=== PATIENT | female | born 2000 | race Caucasian/White ===

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

== ENCOUNTER 2021-11-18 18:56 | Emergency (ER) | payer OTHER, SELFPAY ==
[2021-11-18 19:05] VITALS: BP 121/74; PULSE 81; RESP 20; TEMP 36.8; O2SAT 99
--- NOTE | 2021-11-18 19:21 | ED.FEMALEGU ---
HPI - Female Genitourinary General Chief complaint: Urogenital-Female Stated complaint: Urinary Problem Time Seen by Provider: 11/18/21 19:10 Source: patient and RN notes reviewed Mode of arrival: ambulatory Limitations: no limitations History of Present Illness HPI Narrative: Patient presents today complaining of urinary frequency, urgency, and one episode of urinary incontinence. Symptoms began yesterday. Denies dysuria, hematuria, abdominal pain or flank pain. Has not tried any [id number]-[id number] treatment prior to arrival. Denies any concerns for sexually transmitted infections. Denies any external itching, pain, rashes. Related Data Home Medications Medication Instructions Recorded Confirmed testosterone cypionate 200 mg IM WEEKLY 11/18/21 11/18/21 Allergies Allergy/AdvReac Type Severity Reaction Status Date / Time No Known Allergies Allergy Verified 11/18/21 19:17 Review of Systems Review of Systems: CONSTITUTIONAL: Denies body aches, fever, chills, or sweats. EYES: Denies visual changes, redness, or discharge. ENT: Denies rhinorrhea, congestion, sore throat, or otalgia. CARDIOVASCULAR: Denies chest pain, palpitations, or edema. RESPIRATORY: Denies cough or dyspnea. GASTROINTESTINAL: Denies abdominal pain, nausea, vomiting, or diarrhea. GENITOURINARY: Denies dysuria or hematuria.+ Urinary urgency, frequency, incontinence SKIN: Denies rash, itching, or wounds. MUSCULOSKELETAL: Denies back pain, joint pain, or myalgia. NEUROLOGIC: Denies headache, numbness, tingling, or weakness. PSYCH: Denies depression or anxiety. PMFSH Comments At time of signature, I have reviewed and agree with nursing past medical, surgical, social and family history unless otherwise noted. Please see nursing chart for further information. There is no relevant family history pertinent to the presenting complaint Exam Narrative: GENERAL: Well-appearing, well-nourished, and in no acute distress. HEAD: Normocephalic, atraumatic. EYES: EOMI. No redness or drainage. Conjunctivae normal. ENT: Mucous membranes pink and moist. NECK: Normal AROM. CHEST: No respiratory distress. Clear to auscultation. HEART: Regular rate and rhythm. No murmur appreciated. Normal peripheral pulses. ABDOMEN: Soft, nontender, nondistended, normal active bowel sounds.-CVAT EXTREMITIES: Normal range of motion. No edema. SKIN: Warm, dry, no rash. Capillary refill normal. Normal skin turgor. NEURO: No focal deficits. Alert and oriented x3. Gait steady. PSYCH: Normal affect. No signs of depression or anxiety. Course Course Level of Care: Express Care Visit Vital Signs Vital signs: Vital Signs Temperature 98.3 F 11/18/21 19:05 Pulse Rate 81 11/18/21 19:05 Respiratory Rate 20 11/18/21 19:05 Blood Pressure 121/74 11/18/21 19:05 Pulse Oximetry 99 11/18/21 19:05 Temperature 98.3 F 11/18/21 19:05 Pulse Rate 81 11/18/21 19:05 Respiratory Rate 20 11/18/21 19:05 Blood Pressure 121/74 11/18/21 19:05 Pulse Oximetry 99 11/18/21 19:05 Reviewed. Pt has been instructed to follow up with his PCP regarding his elevated blood pressure today. MDM - Female Genitourinary Differential Diagnosis Differential diagnosis: Likely urinary tract infection, vaginitis and other (Pyelonephritis, interstitial cystitis) Lab Data Attestation: I reviewed the patient's lab results. Labs: Urine Glucose Negative Reference Range: Negative Urine Bilirubin Negative Reference Range: Negative Urine Ketone Negative Reference Range: Negative Urine Specific [place] 1.015 Reference Range:1.001-1.035 Urine Blood Negative
== END 2021-11-18 19:28 | disposition home or self-care (01) ==
PROVIDERS: Emergency Provider Nurse Practitioner; PCP Family Medicine
DX: N30.00 Acute cystitis without hematuria (principal)
CPT/HCPCS: 81003; 87086; 99213; G0463

== ENCOUNTER 2022-02-03 10:42 | Emergency (ER) | payer OTHER, SELFPAY ==
--- NOTE | 2022-02-03 11:06 | ED.GENADULT ---
HPI - General Adult General Chief complaint: Unspecified Stated complaint: overheated Time Seen by Provider: 02/03/22 10:45 History of Present Illness HPI narrative: 21-year-old female presented to the emergency room for complaints of heat exhaustion. 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 Patient states that she became concerned when she stopped sweating. Presently patient is alert and oriented x4. Related Data Home Medications Medication Instructions Recorded Confirmed testosterone cypionate 200 mg/mL 200 mg IM WEEKLY 11/18/21 02/03/22 intramuscular oil Allergies Allergy/AdvReac Type Severity Reaction Status Date / Time No Known Allergies Allergy Verified 02/03/22 11:18 Review of Systems Review of Systems: CONSTITUTIONAL: Denies fever, chills, or sweats. EYES: Denies visual changes, redness, or discharge. ENT: Denies rhinorrhea, congestion, sore throat, or otalgia. CARDIOVASCULAR: Denies chest pain, palpitations, or edema. RESPIRATORY: Denies cough or dyspnea. GASTROINTESTINAL: Denies abdominal pain, nausea, vomiting, or diarrhea. GENITOURINARY: Denies dysuria or hematuria. SKIN: Denies rash or itching. MUSCULOSKELETAL: Reports body aches NEUROLOGIC: Reports headache, numbness, dizziness, or weakness. PSYCHIATRIC: Denies anxiety or depression. Exam Narrative: GENERAL: Well-appearing, well-nourished, and in no acute distress. HEAD: Normocephalic, atraumatic. EYES: PERRLA and EOMI. ENT: Nares clear, no rhinorrhea or epistaxis. Mucous membranes dry. NECK: Supple. No adenopathy or masses. No carotid bruits or JVD CHEST: Clear to auscultation. No respiratory distress. No wheezes rales or rhonchi HEART: Regular rate and rhythm. No murmur heard. Normal peripheral pulses. ABDOMEN: Soft, nontender, nondistended, normal active bowel sounds. EXTREMITIES: Normal range of motion. No edema. SKIN: Warm, dry, no rash. NEURO: No focal deficits. Alert and oriented x3. PSYCH: Normal mood and affect. Course Vital Signs Vital signs: Vital Signs Temperature 36.6 C 02/03/22 11:12 Pulse Rate 65 02/03/22 11:12 Respiratory Rate 16 02/03/22 11:12 Blood Pressure 116/87 02/03/22 11:12 Pulse Oximetry 100 02/03/22 11:12 Oxygen Delivery Room Air 02/03/22 11:12 Temperature 36.6 C 02/03/22 11:12 Pulse Rate 65 02/03/22 11:12 Respiratory Rate 16 02/03/22 11:12 Blood Pressure 116/87 02/03/22 11:12 Pulse Oximetry 100 02/03/22 11:12 Oxygen Delivery Room Air 02/03/22 11:12 Medical Decision Making Vital Signs Vital Signs: Vital Signs Temperature 36.6 C 02/03/22 11:12 Pulse Rate 65 02/03/22 11:12 Respiratory Rate 16 02/03/22 11:12 Blood Pressure 116/87 02/03/22 11:12 Pulse Oximetry 100 02/03/22 11:12 Oxygen Delivery Room Air 02/03/22 11:12 Temperature 36.6 C 02/03/22 11:12 Pulse Rate 65 02/03/22 11:12 Respiratory Rate 16 02/03/22 11:12 Blood Pressure 116/87 02/03/22 11:12 Pulse Oximetry 02/03/22 11:12 Oxygen Delivery Room Air 02/03/22 11:12 Lab Data Result diagrams: 02/03/22 11:19 02/03/22 11:19 Labs: Lab Results 02/03/22 02/03/22 Range/Units 11:19 11:19 WBC 8.9 (4.5-10.0) K/mm3 RBC 4.30 (4.2-5.4) M/mm3 Hgb 13.3 (12.0-15.0) g/dL Hct 39.5 (37.0-47.0) % MCV 91.9 (80-100) fl MCH 30.9 (26-34) pg MCHC 33.7 (32-36) g/dl RDW 11.9 (11.5-14.5) % Plt Count 316 (150-375) k/mm3 MPV 9.9 (7.4-10.4) fl Immature Gran % (Auto) 0.1 (0-0.5) % Neut % (Auto) 66.8 (45.5-73.1) % Lymph % (Auto) 23.6 (18.3-44.2) % [place] % (Auto) 6.6 (2.6-8.5) % Eos % (Auto) 2.4 (0-4.4) % Baso % (Auto) 0.5 (0.2-1.2) % Lymph # (Auto) 2.09 (0.9-3.2) K/mm3 [place] # (Auto) 0.6 (0.1-0.6) K/mm3 Eos # (Auto) 0.2 (0-0.3) K/mm3 Baso # (Auto) 0.0 (0.0-0.1)
[2022-02-03 11:12] VITALS: BP 116/87; PULSE 65; RESP 16; TEMP 36.6; O2SAT 100
[2022-02-03] MEDS: SODIUM CHLORIDE 0.9% IV 1,000 ML 999 ML IV CONT (11:20)
[2022-02-03 11:26] LABS: Basophils Percent Auto 0.5 % (0.2-1.2); Eosinophils Absolute Auto 0.2 K/mm3 (0-0.3); Eosinophils Percent Auto 2.4 % (0-4.4); Hematocrit 39.5 % (37.0-47.0); Hemoglobin 13.3 g/dL (12.0-15.0); Immature Granulocyte Absolute 0.01 K/mm3 (0.00-0.031); Immature Granulocyte Percent A 0.1 % (0-0.5); Lymphocytes Absolute Auto 2.09 K/mm3 (0.9-3.2); Lymphocytes Percent Auto 23.6 % (18.3-44.2); Mean Corpuscular HGB Conc 33.7 g/dl (32-36); Mean Corpuscular Hemoglobin 30.9 pg (26-34); Mean Corpuscular Volume 91.9 fl (80-100); Mean Platelet Volume 9.9 fl (7.4-10.4); Monocytes Absolute Auto 0.6 K/mm3 (0.1-0.6); Monocytes Percent Auto 6.6 % (2.6-8.5); Neutrophils Absolute Auto 5.9 K/mm3 (1.3-6.7); Neutrophils Percent Auto 66.8 % (45.5-73.1); Platelet Count Result 316 k/mm3 (150-375); Red Cell Distribution Width 11.9 % (11.5-14.5); White Blood Count 8.9 K/mm3 (4.5-10.0)
[2022-02-03] MEDS: ONDANSETRON INJ 4 MG/2 ML VIAL IV PUSH (11:31)
[2022-02-03] MEDS: KETOROLAC 30 MG/ML VIAL (*BKC) IV PUSH (11:32)
[2022-02-03 11:40] LABS: Alanine Aminotransferase 14 U/L (6-35); Albumin Level 4.7 g/dL (3.5-5.1); Alkaline Phosphatase 54 U/L (38-126); Anion Gap 8 mmol/L (8-16); Aspartate Amino Transferase 19 U/L (14-36); Bilirubin,Total 0.5 mg/dL (0.2-1.3); Blood Urea Nitrogen 14 mg/dL (7-17); Calcium 8.9 mg/dL (8.4-10.2); Carbon Dioxide 23 mmol/L (22-30); Chloride 109 mmol/L (98-107); Estimated CRCL calculation 107 ml/min; Estimated Glomerular Filt Rate > 60; Glucose 88 mg/dL (65-110); Potassium 4.3 mmol/L (3.4-5.0); Sodium 140 mmol/L (137-145)
[2022-02-03 12:34] VITALS: BP 116/64; PULSE 67; RESP 18; O2SAT 98
== END 2022-02-03 12:40 | disposition home or self-care (01) ==
PROVIDERS: Emergency Provider Nurse Practitioner Family; PCP Family Medicine
DX: T67.9XXA Effect of heat and light, unspecified, initial encounter (principal); X30.XXXA Exposure to excessive natural heat, initial encounter
CPT/HCPCS: 36415; 80053; 85025; 96361; 96374; 96375; 99284; J1885; J2405; J7030

== ENCOUNTER 2022-06-02 15:40 | Emergency (ER) | payer OTHER, SELFPAY ==
[2022-06-02 15:44] VITALS: BP 96/56; PULSE 123; RESP 20; TEMP 37.8; O2SAT 100
--- NOTE | 2022-06-02 15:48 | ED.URI ---
HPI - URI/Sore Throat General Chief Complaint: Upper Respiratory Infection Stated Complaint: Sore Throat/Headache Time Seen by Provider: 06/02/22 15:48 Source: patient and RN notes reviewed History of Present Illness HPI Narrative: Patient is a 21-year-old female who presents the urgent care with complaints of sore throat, headache, body aches, fatigue, postnasal drainage. Patient states that symptoms started 2 days ago and she has had 2 negative COVID test at home. Patient states that she is taken cough drops, mucous relief and cold medications [id number]. Denies any ill exposures. No other acute complaints. No acute distress noted. Patient read the plan of care. Some parts of this dictation were generated by voice recognition software and may contain typographical and/or grammatical inaccuracies. Related Data Home Medications Medication Instructions Recorded Confirmed sertraline 50 mg tablet 50 mg PO DAILY 06/02/22 06/02/22 Allergies Allergy/AdvReac Type Severity Reaction Status Date / Time No Known Allergies Allergy Verified 06/02/22 15:45 Review of Systems Review of Systems: CONSTITUTIONAL: Reports a fever and fatigue EYES: Denies visual changes, redness, or discharge. ENT: Reports of postnasal drainage, sore throat, rhinorrhea CARDIOVASCULAR: Denies chest pain, palpitations, or edema. RESPIRATORY: Denies cough or dyspnea. GASTROINTESTINAL: Denies abdominal pain, nausea, vomiting, or diarrhea. GENITOURINARY: Denies dysuria or hematuria. SKIN: Denies rash or itching. MUSCULOSKELETAL: Denies back pain, joint pain. Reports of body aches NEUROLOGIC: Reports of headache All other systems reviewed are negative, except as documented in HPI. [facility] Past Medical History Medical History (Updated 06/02/22 @ 16:08 by KOREY Kirkpatrick) Anxiety Seasonal allergies Surgical History Surgical History (Updated 02/17/22 @ 10:24 by Scotty Rosa) No pertinent past surgical history Family History Family History (System 02/17/22 @ 10:24 by Scotty Rosa) Father Heart disease Mother Asthma Anxiety and depression Sibling Asthma Anxiety and depression Grandparent Breast cancer maternal and paternal side both dx in 30s Social History Social History (System 02/17/22 @ 10:24 by Scotty Rosa) Smoking status: Current every day smoker Tobacco type: e-cigarettes/vaping Alcohol intake: current Substance use: current Substance use type: marijuana Gender identity (if verbalized by the patient): Transgender Male Agree to blood products: Yes Comments At the time of my signature, I reviewed and agree with the nursing past medical, surgical, social, and family history. There is no relevant family history pertinent to the patient complaint. Exam Narrative: GENERAL: This is a well-nourished, well-developed patient, in no apparent distress. HEAD: normocephalic, atraumatic. EYES: PERRL. Sclera clear/white. Vision is grossly intact. EARS: External ears normal, auditory canals clear and without drainage, TMs normal without perforation. Hearing grossly intact. NOSE: External nose normal with no obvious nasal discharge, nares without redness, no rhinorrhea. THROAT: Mucous membranes moist, mild erythema noted posterior pharynx with moderate postnasal drainage NECK: Neck supple, non-tender without lymphadenopathy CARDIOVASCULAR: Regular rate and rhythm without murmurs, gallops, or rubs. RESPIRATORY: Clear to auscultation. Breath sounds equal bilaterally. No wheezes, rales, or rhonchi. SKIN: warm, intact with no suspicious lesions or rash, good texture and turgor. NEURO: awake, alert, and oriented to person, place and time. There were no obvious focal neurologic abnormalities. EXTREMITIES: No clubbing, cyanosis, or edema. Course Course Level of Care: Express Care Visit Vital Signs Vital signs: Vital Signs Temperature 100.1 F H 06/02/22 15:44 Pulse Rate 123 H 06/02/22 15:44 Respira
[2022-06-02 16:01] VITALS: BP 96/56; PULSE 123; RESP 20; TEMP 37.8; O2SAT 100
== END 2022-06-02 16:10 | disposition home or self-care (01) ==
PROVIDERS: Emergency Provider Nurse Practitioner Family; PCP Family Medicine
DX: J06.9 Acute upper respiratory infection, unspecified (principal); F17.290 Nicotine dependence, other tobacco product, uncomplicated; F41.9 Anxiety disorder, unspecified
CPT/HCPCS: 87081; 87804; 87880; 99213; G0463

== ENCOUNTER 2023-05-31 08:52 | Emergency (ER) | payer OTHER, SELFPAY ==
--- NOTE | 2023-05-31 08:57 | ED.URI ---
HPI - URI/Sore Throat General Chief Complaint: Upper Respiratory Infection Stated Complaint: flu like symptoms Source: patient and RN notes reviewed Mode of arrival: ambulatory Limitations: no limitations History of Present Illness HPI Narrative: Patient is a 22-year-old female who presents to the [facility] with complaints flu-like symptoms starting on Tuesday. Patient reports some nausea vomiting on Tuesday. Reports chills, generalized body aches, congestion, sore throat, and cough since that time. States that she has been experiencing a frequent productive cough with green sputum. She also endorses an intermittent headache. She denies chest pain or shortness of breath. Denies abdominal pain and diarrhea. Denies known fevers. She is currently afebrile. Respirations are unlabored at this time. Related Data Allergies Allergy/AdvReac Type Severity Reaction Status Date / Time No Known Allergies Allergy Verified 05/31/23 09:21 Review of Systems Review of Systems: CONSTITUTIONAL: Denies fever or sweats but reports chills. EYES: Denies visual changes, redness, or discharge. ENT: Denies otalgia. Reports sore throat, congestion. CARDIOVASCULAR: Denies chest pain, palpitations, or edema. RESPIRATORY: Reports cough but denies dyspnea. GASTROINTESTINAL: Denies abdominal pain or diarrhea. Reports nausea and vomiting. GENITOURINARY: Denies dysuria or hematuria. SKIN: Denies rash or itching. MUSCULOSKELETAL: Denies back pain or joint pain. Reports myalgias. NEUROLOGIC: Denies numbness or weakness. Reports headache. Pertinent positives per HPI. [facility] Past Medical History Medical History Anxiety Seasonal allergies Surgical History Surgical History No pertinent past surgical history Family History Family History Father Heart disease Mother Asthma Anxiety and depression Sibling Asthma Anxiety and depression Grandparent Breast cancer maternal and paternal side both dx in 30s Social History Social History Smoking status: Current every day smoker Tobacco type: e-cigarettes/vaping Alcohol intake: current Substance use: current Substance use type: marijuana Living arrangements: with roommate(s) Gender identity (if verbalized by the patient): Transgender Male Agree to blood products: Yes Comments At the time of my signature, I reviewed and agree with the nursing past medical, surgical, social, and family history. There is no relevant family history pertinent to the patient complaint. Exam Narrative: GENERAL: This is a well-nourished, well-developed patient, in no apparent distress. HEAD: normocephalic, atraumatic. EYES: Sclera clear/white. Vision is grossly intact. EARS: External ears normal. Hearing grossly intact. NOSE: External nose normal. Mild congestion. THROAT: Mucous membranes moist, oropharyngeal erythema without ulceration or exudate. NECK: Neck supple, non-tender without lymphadenopathy, masses or thyromegaly. CARDIOVASCULAR: Regular rate and rhythm without murmurs, gallops, or rubs. RESPIRATORY: Clear to auscultation. Breath sounds equal bilaterally. No wheezes, rales, or rhonchi. GASTROINTESTINAL: Abdomen soft, non-tender, nondistended. Bowel sounds are active. No hepato-splenomegaly, or palpable masses. No guarding. SKIN: warm, intact with no suspicious lesions or rash, good texture and turgor. NEURO: awake, alert, and oriented to person, place and time. There were no obvious focal neurologic abnormalities. Course Course Level of Care: Express Care Visit Vital Signs Vital signs: Vital Signs Temperature 97.6 F 05/31/23 09:13 Pulse Rate 93 05/31/23 09:13 Respiratory Rate 20 05/31/23 09:13 Blood Pressure 117/67 05/31/23
[2023-05-31 09:13] VITALS: BP 117/67; PULSE 93; RESP 20; TEMP 36.4; O2SAT 99
== END 2023-05-31 09:50 | disposition home or self-care (01) ==
PROVIDERS: Emergency Provider Nurse Practitioner; PCP Family Medicine
DX: J06.9 Acute upper respiratory infection, unspecified (principal); R05.9 Cough, unspecified; Z20.822 Contact with and (suspected) exposure to COVID-19; F17.290 Nicotine dependence, other tobacco product, uncomplicated; F12.90 Cannabis use, unspecified, uncomplicated
CPT/HCPCS: 87081; 87426; 87880; 99213; C9803; G0463

== ENCOUNTER 2023-07-26 18:00 | Emergency (ER) | payer OTHER, SELFPAY ==
[2023-07-26 18:04] VITALS: BP 120/65; PULSE 119; RESP 20; TEMP 37.1; O2SAT 97
--- NOTE | 2023-07-26 18:48 | ED.GENADULT ---
HPI - General Adult General Chief complaint: Fever Stated complaint: Chills/Body Ache/Nausea Time Seen by Provider: 07/26/23 18:48 Source: patient, RN notes reviewed and old records reviewed Mode of arrival: ambulatory Limitations: no limitations History of Present Illness HPI narrative: 23 year old patient reports 2 day history of chills, body aches,nausea,cough,and some sore throat. Patient reports that significant other has Influenza A and has been caring for them.Patient reports that she has been taking some Mucous relief medication dn using cough drops. Patient reports that she has been COVID vaccinated but has not had flu shot. Patient reports they need work note MD complaint: exposure to influenza A Onset (ago): day(s) (2) Severity scale (1-10): 6 Treatments prior to arrival: other (Mucous relief medication and cough drops) Related Data Home Medications Medication Instructions Recorded Confirmed sertraline 50 mg tablet 50 mg PO DAILY 07/26/23 07/26/23 Allergies Allergy/AdvReac Type Severity Reaction Status Date / Time No Known Allergies Allergy Verified 07/26/23 18:10 Review of Systems Review of Systems: CONSTITUTIONAL:Reports malaise, chills, sweats, or fever. EYES: Denies visual changes, redness, or discharge. ENT: Reports rhinorrhea, congestion, sinus pain, no otalgia and positive for sore throat CARDIOVASCULAR: Denies chest pain, palpitations, or edema. RESPIRATORY: Reports cough.? Denies dyspnea. GASTROINTESTINAL: Denies abdominal pain,positive for nausea, no vomiting, diarrhea SKIN: Denies rash or itching. MUSCULOSKELETAL:Reports myalgia. NEUROLOGIC: Denies headache. All systems reviewed & are unremarkable except as noted in HPI and below PMFSH Past Medical History Medical History (Updated 07/28/23 @ 15:41 by Sommer Ybarra NP) Anxiety Seasonal allergies Urinary tract infection Surgical History Surgical History No pertinent past surgical history Family History Family History Father Heart disease Mother Asthma Anxiety and depression Sibling Asthma Anxiety and depression Grandparent Breast cancer maternal and paternal side both dx in 30s Social History Social History Smoking status: Current every day smoker Tobacco type: e-cigarettes/vaping Alcohol intake: current Substance use: current Substance use type: marijuana Living arrangements: with roommate(s) Gender identity (if verbalized by the patient): Transgender Male Agree to blood products: Yes Comments At time of signature, agree with nursing past medical, surgical, social and family history. There is no relevant family history pertinent to the presenting complaint Exam Narrative: GENERAL: Well-appearing, well-nourished, and in no acute distress. HEAD: Normocephalic EYES: PERRLA, conjunctivae clear ENT: Nares clear, turbinates edematous and erythematous, clear discharge. Mucous membranes moist. TM pearly suero with dull light reflex bilaterally; no tragal tenderness. Oropharynx erythematous without lesions. Tonsils not enlarged and without exudate, no drooling, no hoarseness, no trismus, uvula midline.post nasal drainage NECK: Supple. No lymphadenopathy CHEST: Clear to auscultation, breath sounds equal. No wheezing, rhonchi, rales, or stridor. No respiratory distress, speaks in full sentences.cough, SAO2 97% on room air HEART: Regular rate and rhythm. No murmur heard. SKIN: Warm, dry, no rash. NEURO: Alert and oriented x3. PSYCH: Normal mood and affect Course Course Emergency Course: Patient is aware of diagnosis, understands and agrees to treatment plan.? Anticipatory guidance given.? Patient agrees to follow-up as directed and is aware of reasons to seek care at the emergency department.
== END 2023-07-26 19:10 | disposition home or self-care (01) ==
PROVIDERS: Emergency Provider Registered Nurse; PCP Family Medicine
DX: B34.9 Viral infection, unspecified (principal); F17.290 Nicotine dependence, other tobacco product, uncomplicated; F12.90 Cannabis use, unspecified, uncomplicated; F41.9 Anxiety disorder, unspecified
CPT/HCPCS: 87081; 87804; 87880; 99213; G0463

== ENCOUNTER 2023-10-05 15:19 | Emergency (ER) | payer OTHER, SELFPAY ==
--- NOTE | 2023-10-05 15:23 | ED.URI ---
HPI - URI/Sore Throat General Chief Complaint: Upper Respiratory Infection Stated Complaint: Sore Throat,Headache/Nausea Source: patient and RN notes reviewed Mode of arrival: ambulatory Limitations: no limitations History of Present Illness HPI Narrative: Patient is a 23-year-old presenting to the [facility] with complaints of lingering COVID symptoms. Patient states that he was recently diagnosed with COVID on 09/29/2023 at home. Patient reports ongoing sore throat and headaches. Patient also reports ongoing nausea. Denies vomiting. States that vomiting was present when he was 1st diagnosed with COVID but he has not vomited for several days. He denies recent fevers. Patient does report ongoing nonproductive cough. Patient states that he was just wanting to be cleared as it is time for him to return to work. Related Data Home Medications Medication Instructions Recorded Confirmed testosterone cypionate 200 mg/mL 200 mg DIRECTED 10/05/23 10/05/23 intramuscular oil Allergies Allergy/AdvReac Type Severity Reaction Status Date / Time No Known Allergies Allergy Verified 07/26/23 18:10 Review of Systems Review of Systems: CONSTITUTIONAL: Denies fever, chills, or sweats. EYES: Denies visual changes, redness, or discharge. ENT: Denies otalgia. Reports sore throat. CARDIOVASCULAR: Denies chest pain, palpitations, or edema. RESPIRATORY: Reports cough btu denies dyspnea. GASTROINTESTINAL: Denies abdominal pain, vomiting, or diarrhea. Reports nausea. GENITOURINARY: Denies dysuria or hematuria. SKIN: Denies rash or itching. MUSCULOSKELETAL: Denies back pain, joint pain, or myalgia. NEUROLOGIC: Reports headache but denies numbness or weakness. Pertinent positives per HPI. PMFSH Past Medical History Medical History Anxiety Seasonal allergies Urinary tract infection Surgical History Surgical History No pertinent past surgical history Family History Family History Father Heart disease Mother Asthma Anxiety and depression Sibling Asthma Anxiety and depression Grandparent Breast cancer maternal and paternal side both dx in 30s Social History Social History Smoking status: Current every day smoker Tobacco type: e-cigarettes/vaping Alcohol intake: current Substance use: current Substance use type: marijuana Living arrangements: with roommate(s) Gender identity (if verbalized by the patient): Transgender Male Agree to blood products: Yes Comments At the time of my signature, I reviewed and agree with the nursing past medical, surgical, social, and family history. There is no relevant family history pertinent to the patient complaint. Exam Narrative: GENERAL: This is a well-nourished, well-developed patient, in no apparent distress. HEAD: normocephalic, atraumatic. EYES: Sclera clear/white. Vision is grossly intact. EARS: External ears normal. Hearing grossly intact. NOSE: External nose normal with no obvious nasal discharge, nares without redness, no rhinorrhea. THROAT: Mucous membranes moist, oropharyngeal erythema without exudate or ulceration. NECK: Neck supple, non-tender without lymphadenopathy, masses or thyromegaly. CARDIOVASCULAR: Regular rate and rhythm without murmurs, gallops, or rubs. RESPIRATORY: Clear to auscultation. Breath sounds equal bilaterally. No wheezes, rales, or rhonchi. GASTROINTESTINAL: Abdomen soft, non-tender, nondistended. Bowel sounds are active. No hepato-splenomegaly, or palpable masses. No guarding. SKIN: warm, intact with no suspicious lesions or rash, good texture and turgor. NEURO: awake, alert, and oriented to person, place and time. There were no obvious focal neurologic abnormalities. Course
[2023-10-05 15:26] VITALS: BP 120/56; PULSE 90; RESP 20; TEMP 36.4; O2SAT 100
== END 2023-10-05 16:04 | disposition home or self-care (01) ==
PROVIDERS: Emergency Provider Nurse Practitioner; PCP Family Medicine
DX: U07.1 COVID-19 (principal); F17.290 Nicotine dependence, other tobacco product, uncomplicated; F12.90 Cannabis use, unspecified, uncomplicated; F64.0 Transsexualism
CPT/HCPCS: 87081; 87880; 99213; G0463

== ENCOUNTER 2025-07-14 12:35 | Emergency (ER) | payer OTHER, SELFPAY ==
--- NOTE | ~2025-07-14 | XR_ITS ---
EXAMINATION: XR knee RT min 4V, 07/14/2025 13:34 [facility] HISTORY: fall on ice yesterday COMPARISON: No comparisons available. Findings: No acute fracture or malalignment. No significant degenerative changes. Soft tissues unremarkable. Impression: No acute fracture or malalignment. Reviewed, dictated and finalized at location [facility] Impression: No acute fracture or malalignment.
[2025-07-14 12:48] VITALS: BP 125/94; PULSE 74; RESP 16; TEMP 36.2; O2SAT 100
--- NOTE | 2025-07-14 14:20 | ED.LOWEXIN ---
HPI - Extremity Injury (Lower) General Chief Complaint: Extremity Injury, Lower Stated Complaint: INJURED R KNEE Time Seen by Provider: 07/14/25 13:44 Source: patient and RN notes reviewed Mode of arrival: ambulatory Limitations: no limitations History of Present Illness HPI Narrative: 25 year old male patient presents today complaining of right knee pain. 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 Denies numbness or tingling. Currently rates the knee at rest 3/10, which increases to 6/10 with weight-bearing. No OTC treatment prior to arrival. Up-to-date on tetanus vaccine. Related Data Home Medications ?Medication ?Instructions ?Recorded ?Confirmed ?Last Taken ?Type testosterone cypionate 200 mg/mL 200 mg DIRECTED 10/05/23 04/09/25 Unknown History intramuscular oil Held on 04/05/24. Instructions: .Provider Order Allergies Allergy/AdvReac Type Severity Reaction Status Date / Time No Known Allergies Allergy Verified 07/14/25 12:49 [facility] Past Medical History Medical History Ongoing symptomatic disease due to COVID-19 virus Cannabinoid hyperemesis syndrome Apnea Anxiety Seasonal allergies Urinary tract infection Surgical History Surgical History No pertinent past surgical history Family History Family History Father Heart disease Mother Asthma Anxiety and depression Sibling Asthma Anxiety and depression Grandparent Breast cancer maternal and paternal side both dx in 30s Social History Social History Smoking status: Current some day smoker Tobacco type: e-cigarettes/vaping Alcohol intake: current Substance use: current Substance use type: marijuana Living arrangements: with roommate(s) Gender identity (if verbalized by the patient): Transgender Male Agree to blood products: Yes Comments At time of signature, I have reviewed and agree with nursing past medical, surgical, social and family history unless otherwise noted. Please see nursing chart for further information. There is no relevant family history pertinent to the presenting complaint Exam Narrative: GENERAL: Well-appearing, well-nourished, and in no acute distress. HEAD: Normocephalic, atraumatic. EYES: EOMI. No redness or drainage. Conjunctivae normal. ENT: Mucous membranes pink and moist. NECK: Normal AROM. CHEST: No respiratory distress. EXTREMITIES: Right knee: Small area of tenderness with localized edema distal to the patella with small, superficial abrasion overlying. Pain with passive extension, internal and external rotation. Distal sensation intact. Capillary refill normal. SKIN: Warm, dry, no rash. Capillary refill normal. Normal skin turgor. NEURO: No focal deficits. Alert and oriented x3. Gait steady. PSYCH: Normal affect. No signs of depression or anxiety. Course Course Level of Care: Express Care Visit Vital Signs Vital signs: Vital Signs Temperature 97.2 F L 07/14/25 12:48 Pulse Rate 74 07/14/25 12:48 Respiratory Rate 16 07/14/25 12:48 Blood Pressure 125/94 H 07/14/25 12:48 Pulse Oximetry 100 07/14/25 12:48 Temperature 97.2 F L 07/14/25 12:48 Pulse Rate 74 07/14/25 12:48 Respiratory Rate 16 07/14/25 12:48 Blood Pressure 125/94 H 07/14/25 12:48 Pulse Oximetry 100 07/14/25 12:48 Reviewed MDM - Extremity Injury (Lower) MDM Narrative Medical decision making narrative: 25 year old male patient presents today complaining of right knee pain. 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 Denies numbness or tingling. Currently rates the knee at rest 3/10, which increases to 6/10 with weight-bearing. No OTC treatment prior to arrival. Up-to-date on tetanus vaccine. Upon exam,Small area of tenderness with localized edema distal to the patella with small, superficial abrasion overlying. Pain with passive extension, internal and external rotation. Neurovascularly intact. X-ray negative. Pain likely due to contusion and abrasion. Recommend ice and anti-inflammatory. Patient agrees with plan. Vital signs stable. Anticipatory guidance given. Differential Diagnosis Differential diagnosis: Likely other (Contusion, abrasion, fracture) Imaging Data Radiologist's impression: ITS Impressions Knee X-Ray 07/14/25 14:08 Impression: No acute fracture or malalignment. Critical Care Time Critical Care Time Critical Care Time: No Discharge Plan Discharge Clinical Impression: Contusion of knee, right Qualifiers: Encounter type: initial encounter Qualified Code(s): S80.01XA - Contusion of right knee, initial encounter Fall due to ice or snow Qualifiers: Encounter type: initial encounter Qualified Code(s): W00.9XXA - Unspecified fall due to ice and snow, initial encounter Patient Disposition: Home Condition: Stable Instructions: Contusion in Adults (ED) Additional Instructions: Your x-ray is negative today. Elevate and ice the knee. Apply ice to help with swelling. Taking anti-inflammatories such as Aleve or ibuprofen to help with pain and inflammation. Patient Language: Kiswahili Prescriptions: No Action testosterone cypionate 200 mg/mL oil 200 mg DIRECTED bupropion HCl [Wellbutrin XL] 150 mg tablet extended release 24 hr 150 mg PO QAM Qty: 90 1RF aripiprazole 2 mg tablet See Rx Instructions .ROUTE .COMPLEX Qty: 90 1RF Dose Instruction: 2 MG ORALLY EVERY DAY AT BEDTIME Rx Instructions: 2 MG ORALLY EVERY DAY AT BEDTIME Follow-up/Referrals: Bailee Gandhi APRN [Primary Care Provider, Family Practice] Stand Alone Forms: Work/School Release IP Time of Disposition: 14:27
== END 2025-07-14 14:30 | disposition home or self-care (01) ==
PROVIDERS: Emergency Provider Nurse Practitioner; PCP Nurse Practitioner Adult Health
DX: S80.01XA Contusion of right knee, initial encounter (principal); W00.9XXA Unspecified fall due to ice and snow, initial encounter; Y99.0 Civilian activity done for income or pay; F17.290 Nicotine dependence, other tobacco product, uncomplicated; F12.90 Cannabis use, unspecified, uncomplicated; F64.0 Transsexualism
CPT/HCPCS: 73564; 99213; G0463